=== PATIENT | female | born 1955 | race Hispanic/Latino ===

== ENCOUNTER 2018-11-10 15:41 | Emergency (ER) | payer OTHER ==
[2018-11-10 16:08] LABS: EOSINOPHILS % (AUTO) 2.5 % (0.0-8.0); HEMATOCRIT 42.6 % (42-54); LYMPHOCYTES % (AUTO) 43.2 % (21.0-51.0); MEAN CORPUSCULAR HEMOGLOBIN 28.2 pg (27.0-33.0); MEAN CORPUSCULAR VOLUME 85.3 fL (79-99); MONOCYTES % (AUTO) 6.6 % (3.0-13.0); NEUTROPHILS % (AUTO) 46.7 % (40.0-77.0); PLATELET COUNT (AUTO) 266 K/uL (130-400); RED BLOOD CELL COUNT(AUTO) 4.99 MIL/uL (4.50-6.20); WHITE BLOOD COUNT (AUTO) 6.3 K/uL (4.8-10.8)
[2018-11-10 16:19] LABS: CREATININE 0.7 mg/dL (0.5-1.5); POTASSIUM 3.9 mmol/L (3.5-5.1)
[2018-11-10 16:23] LABS: ALBUMIN 3.8 g/dL (3.5-5.0); BILIRUBIN,TOTAL 0.2 mg/dL (0.2-1.0); TOTAL PROTEIN, SERUM 7.8 g/dL (6.0-8.3)
[2018-11-10] MEDS ORDERED: GADODIAMIDE 10 MMOL/20 ML VIAL IV ONE (20:53)
[2018-11-10] MEDS ORDERED: LORAZEPAM 2 MG/ML 1 ML VIAL ONE (21:18)
[2018-11-11] MEDS ORDERED: DEXAMETHASONE SOD PHOSPHATE 4 MG/ML 5ML VIAL ONE (00:19)
[2018-11-11] MEDS ORDERED: KETOROLAC TROMETHAMINE 30MG/ML ONE (00:19)
== END 2018-11-11 00:57 | disposition home or self-care (01) ==
LOC: EDSEX 15:41 → EDH 15:41
DX: M50.123 Cervical disc disorder at C6-C7 level with radiculopathy (principal); I10 Essential (primary) hypertension; F41.9 Anxiety disorder, unspecified
CPT/HCPCS: 36415; 70450; 70544; 70547; 70551; 71045; 72125; 80053; 84484; 85025; 93005; 96374; 96375 ×2; 99285; J1100; J1885; J2060; A9579

== ENCOUNTER 2022-07-22 21:10 | Emergency (ER) | payer MEDICARE ==
[~2022-07-22] VITALS: Ht 154.9 cm; Wt 73.0 kg
[2022-07-22 21:53] VITALS: BP 171/82
[2022-07-22 22:09] LABS: BASOPHILS % (AUTO) 1.2 % (0.0-5.0); EOSINOPHILS % (AUTO) 2.9 % (0.0-8.0); HEMATOCRIT 41.4 % (36-48); LYMPHOCYTES % (AUTO) 35.2 % (21.0-51.0); MEAN CORPUSCULAR HEMOGLOBIN 27.9 pg (27.0-33.0); MEAN CORPUSCULAR HGB CONC 32.9 g/dL (32.0-36.0); MEAN CORPUSCULAR VOLUME 84.8 fL (79-99); MONOCYTES % (AUTO) 7.4 % (3.0-13.0); NEUTROPHILS % (AUTO) 53.1 % (40.0-77.0); PLATELET COUNT (AUTO) 370 K/uL (130-400); RED BLOOD CELL COUNT(AUTO) 4.88 MIL/uL (4.00-5.50); RED CELL DISTRIBUTION WIDTH 12.6 % (11.0-15.5); WHITE BLOOD COUNT (AUTO) 8.5 K/uL (4.8-10.8)
[2022-07-22 22:11] LABS: APPEARANCE,URINE CLEAR (CLEAR); BILIRUBIN,URINE NEGATIVE (NEGATIVE); COLOR,URINE COLORLESS (YELLOW); GLUCOSE, URINE (UA) NEGATIVE (NEGATIVE); KETONES,URINE NEGATIVE (NEGATIVE); LEUKOCYTE ESTERASE ,URINE NEGATIVE Leu/uL (NEGATIVE); NITRATE,URINE NEGATIVE (NEGATIVE); OCCULT BLOOD,URINE NEGATIVE (NEGATIVE); PH,URINE 5.5 (5.0-8.0); PROTEIN,URINE NEGATIVE (NEGATIVE); UROBILINOGEN,URINE 0.2 mg/dL (0.2-1.0)
[2022-07-22 22:19] LABS: CREATININE 0.7 mg/dL (0.5-1.5); POTASSIUM 3.4 mmol/L (3.5-5.1)
[2022-07-22 22:23] LABS: ALBUMIN 3.9 g/dL (3.5-5.0); TOTAL PROTEIN, SERUM 7.8 g/dL (6.0-8.3)
[2022-07-22] MEDS ORDERED: IOHEXOL 350 MG/ML 100ML INFUS..BTL IV ONE (22:28)
[2022-07-23] MEDS ORDERED: KETOROLAC 15MG/ML VIAL (15MG/ML) IV ONE
[2022-07-23] MEDS ORDERED: DICYCLOMINE HCL 10 MG/5 ML ML PO SCH
== END 2022-07-23 00:02 | disposition home or self-care (01) ==
LOC: EDH 21:10
DX: R10.9 Unspecified abdominal pain (principal); I10 Essential (primary) hypertension; Z90.49 Acquired absence of other specified parts of digestive tract; Z98.890 Other specified postprocedural states
CPT/HCPCS: 99285; 74177; 96374; 84484; 80053; 83690; 85025; 81003; 36415; J1885; Q9967

== ENCOUNTER 2022-12-10 13:43 | Emergency (ER) | payer MEDICARE ==
[~2022-12-10] VITALS: Ht 152.4 cm; Wt 72.6 kg
[2022-12-10] MEDS ORDERED: CYCL10TA16 PO (15:21)
[2022-12-10] MEDS ORDERED: CYCLOBENZAPRINE HCL 10 MG TABLET PO ONE (15:30)
[2022-12-10 20:17] LABS: APPEARANCE,URINE CLEAR (CLEAR); BILIRUBIN,URINE NEGATIVE (NEGATIVE); COLOR,URINE YELLOW (YELLOW); GLUCOSE, URINE (UA) NEGATIVE (NEGATIVE); KETONES,URINE 20 mg/dL (NEGATIVE); LEUKOCYTE ESTERASE ,URINE NEGATIVE Leu/uL (NEGATIVE); NITRATE,URINE NEGATIVE (NEGATIVE); PH,URINE 5.5 (5.0-8.0); PROTEIN,URINE 10 mg/dL (NEGATIVE); UROBILINOGEN,URINE 0.2 mg/dL (0.2-1.0)
[2022-12-10 20:18] LABS: ADD UA MICROSCOPIC YES
[2022-12-10 20:20] LABS: BACTERIA,URINE RARE /HPF (None Seen); MUCUS,URINE RARE LPF (None Seen); SQUAMOUS EPITHELIAL CELL,UR RARE /HPF (0-2)
[2022-12-10] MEDS ORDERED: CYCLOBENZAPRINE HCL 10 MG TABLET ONE (20:28)
[2022-12-10 20:29] VITALS: BP 136/74; PULSE 84; RESP 16; O2SAT 95
== END 2022-12-10 21:25 | disposition home or self-care (01) ==
LOC: EDH 13:43
DX: M54.31 Sciatica, right side (principal); I10 Essential (primary) hypertension; F41.9 Anxiety disorder, unspecified; Z90.49 Acquired absence of other specified parts of digestive tract
CPT/HCPCS: 81001